=== PATIENT | male | born 1985 | race Caucasian/White ===

== ENCOUNTER 2024-02-05 20:24 | Emergency (ER) | payer OTHER ==
[~2024-02-05] VITALS: Ht 180.3 cm; Wt 93.0 kg
[~2024-02-05 20:24] MED LIST: CYCLOBENZAPRINE5 M3 PO; KEFLEX500 MG PO; MOTRIN800 MG PO; Motrin,Rufen800 MG PO; NKHM PO; NORCO 325 MG-51 TAB PO; VALTREX500 MG PO; VICODIN ES 7501 TAB PO; ZOFRAN ODT4 MG SL
[2024-02-05 21:36] LABS: BASO % 0.3 % (0.0-1.0); EOS # 0.3 10*3/uL (0.0-0.4); EOS % 3.5 % (1.0-4.0); HEMATOCRIT 40.6 % (42.0-52.0); LYMPH % 21.5 % (27.0-41.0); MEAN CELL VOLUME 96.2 fl (80.0-94.0); MEAN CORPUSCULAR HGB 32.7 pg (27.0-31.0); MEAN PLATELET VOLUME 9.6 fl (9.6-12.3); MONO # 0.6 10*3/uL (0.1-1.0); MONO % 6.8 % (3.0-9.0); NEUT # 6.1 10*3/uL (2.3-7.9); NEUT % 67.5 % (47.0-73.0); PLATELET COUNT AUTOMATED 226 10*3/uL (130-400); RED BLOOD COUNT 4.22 10*6/uL (4.50-5.90); RED CELL DISTRI WIDTH 12.3 % (0-14.5); WHITE BLOOD COUNT 9.1 10*3/uL (4.8-10.8)
[2024-02-05 21:46] LABS: BUN 16 mg/dl (9-23); CHLORIDE 103 mmol/L (98-107); POTASSIUM 4.4 mmol/L (3.4-5.1)
[2024-02-05 21:48] LABS: ACT PARTIAL THROMBO TIME 25.1 SECONDS (20.0-32.1)
[2024-02-05] MEDS ORDERED: Enoxaparin Sodium 100 MG/ML SYR SC ONE (22:10)
== END 2024-02-05 22:25 | disposition left against medical advice (07) ==
LOC: ED 20:24
PROVIDERS: Physician Assistant Medical
DX: M79.605 Pain in left leg (principal); Z53.29 Procedure and treatment not carried out because of patient's decision for other reasons

== ENCOUNTER 2024-02-06 06:01 | Emergency (ER) | payer OTHER ==
[~2024-02-06] VITALS: Wt 93.0 kg
== END 2024-02-06 09:40 | disposition home or self-care (01) ==
LOC: ED 06:01
DX: M79.605 Pain in left leg (principal); R60.0 Localized edema; R20.0 Anesthesia of skin; Z98.890 Other specified postprocedural states